=== PATIENT | female | born 1950 | race African-American/Black ===

== ENCOUNTER 2017-08-28 07:43 | Observation (INO) ==
[2017-08-28] MEDS ORDERED: SODIUM CHLORIDE 0.9% 1,000 ML IV STA (08:14)
[2017-08-28 08:49] LABS: Basophils % 0.4 % (0.0-0.8); Eosinophils % 0.3 % (0.00-10.9); Hematocrit 39.5 VOL% (35.7-47.0); Hemoglobin 13.3 GM/DL (12.0-16.0); Immature Granulocytes % 0.4 %; Immature Granulocytes Absolute 0.03 #; Lymphocytes # 2.8 10*3/uL (1.4-4.0); Lymphocytes % 37.1 % (21.3-54.2); Mean Corpuscular HGB Conc 33.7 GM/DL (32-36); Mean Corpuscular Hemoglobin 30 PG (27-34); Mean Platelet Volume 9.6 FL (9.6-12.0); Monocytes # 0.5 10*3/uL (0.11-0.8); Monocytes % 7.1 % (1.7-12.7); Neutrophils # 4.1 10*3/uL (1.4-7.4); Neutrophils % 54.7 % (38.7-73.9); Platelet Count 337 T/CUMM (130-400); Red Blood Count 4.39 MC/CUMM (3.8-5.5); Red Cell Distribution Width 12.9 % (9.3-17.3); White Blood Count 7.4 T/CUMM (4-12)
[2017-08-28 08:55] LABS: Apearance,Urine CLEAR (Clear); Bilirubin,Urine Negative (Negative); Blood, Urine Negative (Negative); Glucose,Urine (UA) Negative (Negative); Ketones,Urine Negative (Negative); Mucus,Urine Occasional /LPF (Occasional); Nitrite,Urine Negative (Negative); Protein,Urine 30 MG/DL; RBC,Urine 2 /HPF (0-4); Squamous Epithelial Cell,Urine Occasional /HPF (0-10); Urine Color Yellow (Yellow); Urine Specific Gravity 1.013 (1.001-1.035); Urine Urobilinogen < 2.0 EU/DL (0.2-1.0); WBC,Urine 6 /HPF (0-6)
[2017-08-28 09:06] LABS: Barbiturates Screen,Urine Negative (Negative); Benzodiazepines Screen,Urine Negative (Negative); Cannabinoid Screen,Urine Negative (Negative); Opiate Screen,Urine Negative (Negative); Phencyclidine Screen,Urine Negative (Negative)
[2017-08-28 09:09] LABS: Alanine Aminotransferase 43 U/L (13-56); Albumin 3.8 G/DL (3.4-5.0); Alkaline Phosphatase 116 U/L (45-117); Aspartate Amino Transferase 32 U/L (0-37); Blood Urea Nitrogen 11 MG/DL (7-18); Calcium 8.9 MG/DL (8.5-10.1); Glucose 124 MG/DL (74-106); Osmolality,Calculated 278.4 MOS/KG (273-304); Potassium 3.5 MMOL/L (3.5-5.1); Sodium 140 MMOL/L (136-145); Total Protein 8.2 G/DL (6.4-8.3); Troponin I Only < 0.015 NG/ML (0.00-0.045)
[2017-08-28] MEDS ORDERED: LABETALOL 20 MG/4 ML SYRINGE IV PRN (10:29)
[2017-08-28] MEDS ORDERED: ASPIRIN 325 MG TABLET PO SCH (10:30)
[2017-08-28] MEDS ORDERED: hydrALAZINE 20 MG/1 ML VIAL IV PRN (10:34)
[2017-08-28 11:14] LABS: Risk Ratio 2.87; VLDL CHOLESTEROL 18.4 MG/DL
[2017-08-28] MEDS: amLODIPine 10 MG TABLET PO SCH (11:28)
[2017-08-28] MEDS: ENOXAPARIN 40 MG/0.4 ML SYRINGE SUBCUT SCH (11:29)
[2017-08-28] MEDS: LISINOPRIL/HCTZ 20-25 MG TABLET PO SCH (14:25)
[2017-08-28] MEDS: ROSUVASTATIN 20 MG TABLET PO SCH (21:11)
[2017-08-29 08:02] LABS: Basophils # 0.1 10*3/uL (0.0-0.2); Basophils % 0.7 % (0.0-0.8); Eosinophils % 0.1 % (0.00-10.9); Hematocrit 40.5 VOL% (35.7-47.0); Hemoglobin 13.8 GM/DL (12.0-16.0); Immature Granulocytes % 0.3 %; Immature Granulocytes Absolute 0.02 #; Lymphocytes # 2.6 10*3/uL (1.4-4.0); Lymphocytes % 37.4 % (21.3-54.2); Mean Corpuscular HGB Conc 34.1 GM/DL (32-36); Mean Corpuscular Hemoglobin 30 PG (27-34); Mean Corpuscular Volume 88.2 FL (87-102); Mean Platelet Volume 9.7 FL (9.6-12.0); Monocytes # 0.5 10*3/uL (0.11-0.8); Monocytes % 7.4 % (1.7-12.7); Neutrophils # 3.8 10*3/uL (1.4-7.4); Neutrophils % 54.1 % (38.7-73.9); Platelet Count 349 T/CUMM (130-400); Red Blood Count 4.59 MC/CUMM (3.8-5.5); Red Cell Distribution Width 12.8 % (9.3-17.3)
[2017-08-29 08:25] LABS: Calcium 9.4 MG/DL (8.5-10.1); Osmolality,Calculated 276.7 MOS/KG (273-304)
[2017-08-29] MEDS: amLODIPine 10 MG TABLET PO SCH (08:35)
[2017-08-29] MEDS: CLOPIDOGREL 75 MG TABLET PO SCH (08:35)
[2017-08-29] MEDS: LISINOPRIL/HCTZ 20-25 MG TABLET PO SCH (08:35)
[2017-08-29] MEDS: ENOXAPARIN 40 MG/0.4 ML SYRINGE SUBCUT SCH ×2 (08:36→10:04)
[2017-08-29] MEDS: ROSUVASTATIN 20 MG TABLET PO SCH (21:37)
[2017-08-30] MEDS: LISINOPRIL/HCTZ 20-25 MG TABLET PO SCH (09:05)
[2017-08-30] MEDS: CLOPIDOGREL 75 MG TABLET PO SCH (09:06)
[2017-08-30] MEDS: ENOXAPARIN 40 MG/0.4 ML SYRINGE SUBCUT SCH ×2 (09:06→10:25)
[2017-08-30] MEDS: amLODIPine 10 MG TABLET PO SCH (09:06)
[2017-08-30 12:08] VITALS: BP 120/71
== END 2017-08-30 13:10 | disposition home or self-care (01) ==
LOC: N.ED 07:43 → N.EDINP 07:43 → SUATTDRO 10:29 → N.EDINP 12:19 → N.TELES 13:07
PROVIDERS: ADMIT Internal Medicine; ATTEND Internal Medicine